=== PATIENT | female | born 1970 | race Caucasian/White ===

== ENCOUNTER → 2019-11-18 11:13 | Outpatient (BNVA) | payer MEDICARE, MEDICAID, SELFPAY | PROVIDERS: Family Provider Internal Medicine; Visit Provider Nurse Practitioner Family | DX: Z20.828 Contact with and (suspected) exposure to other viral communicable diseases (principal) | CPT/HCPCS: 87635 ==

== ENCOUNTER 2020-03-02 14:47 | Outpatient (CLI) | payer MEDICARE, MEDICAID, SELFPAY ==
--- NOTE | 2020-03-02 14:56 | USCV_ITS ---
Sharon Bello Age: 49 Gender: F : 1970 Exam Date: 03/02/2020 14:51 Ordering Phys: Shelly Fermin TRAINING ASSISTANT Technologist: Nhung Ramirez [place]am [place] [facility] [place] Indication: LLE pain and swelling HISTORY: Lower extremity swelling. Lower extremity pain. Patient has. Edema. PROCEDURES: Venous duplex imaging was performed in only the left lower extremity. The following venous structures were evaluated: common femoral vein, profunda vein, proximal portion of the greater saphenous vein, superficial femoral vein, and the popliteal vein. In addition, the posterior tibial veins were evaluated. Serial compression, augmentation maneuvers, and spectral Doppler flow evaluation were performed. FINDINGS: Examination was technically limited due to body habitus. Normal 2-D Doppler and augmentation and compressibility throughout the lower extremity venous structures. Additional imaging through the proximal calf veins also reveals no thrombus. Limited evaluation of the greater saphenous vein is patent with no thrombus.. CONCLUSIONS No DVT left lower extremity. Dr. Wendi Delacruz DO (Electronically Signed) Final Date: 02 March 2020 16:26 S
== END 2020-03-02 14:48 | disposition home or self-care (01) ==
LOC: RAD 14:53
PROVIDERS: PCP Internal Medicine; Visit Provider Nurse Practitioner Family
DX: M79.605 Pain in left leg (principal)
CPT/HCPCS: 93971

== ENCOUNTER 2020-10-17 07:35 | Outpatient (CLI) | payer MEDICARE, MEDICAID, SELFPAY ==
[2020-10-17 07:45] VITALS: BP 159/84; PULSE 77; RESP 18; TEMP 36.6; O2SAT 99
--- NOTE | 2020-10-17 07:54 | AMB.MCA ---
Patient Information COVID 19 common symptoms: positive fever(s), chills and cough [facility] COVID test results: SARS-CoV-2 RNA (RT-PCR) Not detected (NOT DETECTED) 11/18/19 11:13 11/18/19 outside results available, scanned Criteria/Plan Inclusion/Exclusion Criteria weight >/= 40kg, + direct test </= 10 days ago and symptom onset </= 10 days ago has diabetes not requiring hospitalization, not requiring oxygen (if not chronically on oxygen) and no increase oxygen requirement (if chronically on oxygen) Patient education patient/family/caregiver received/reviewed fact sheet, Emergency Use Authorization/unapproved drug status discussed with patient/family/caregiver, alternatives to this treatment discussed with patient/family/caregiver, risks and benefits of medication reviewed with patient/family/caregiver, patient/family/caregiver given opportunity for questions, which were answered and patient consents to receiving Monoclonal Antibody Treatment Plan for treatment Meets criteria for Monoclonal Antibody infusion Ordering Monoclonal Antibody infusion for today
[2020-10-17 09:37] VITALS: BP 133/83; PULSE 78; RESP 16; TEMP 36.8; O2SAT 98
[2020-10-17 10:36] VITALS: BP 125/77; PULSE 79; RESP 16; TEMP 36.7; O2SAT 98
== END 2020-10-17 07:36 | disposition home or self-care (01) ==
PROVIDERS: PCP Internal Medicine; Visit Provider Nurse Practitioner Family
DX: U07.1 COVID-19 (principal)
CPT/HCPCS: 96365

== ENCOUNTER 2020-11-05 13:00 | Outpatient (CLI) | payer MEDICARE, MEDICAID, SELFPAY ==
--- NOTE | 2020-11-05 13:09 | US_ITS ---
WS: [id number] ULTRASOUND THYROID TECHNIQUE: Ultrasound of the thyroid. CLINICAL INFORMATION: LEFT THYROID NODULE COMPARISON: None. FINDINGS: Technically difficult examination due to body habitus. Thyroid: Right and left thyroid lobes are normal in size and echotexture. Right thyroid lobe: 4.3 cm x 1.9 cm x 1.9 cm Left thyroid lobe: 4.4 cm x 1.9 cm x 1.6 cm. Hypoechoic solid appearing nodule in the upper pole left thyroid measuring 5.5 x 6.0 x 6.5 mm with ad ditional similar-appearing solid nodule in the mid thyroid measuring 3.2 x 4.6 x 3.4 mm. Isthmus: 0.4 mm. Cervical lymphadenopathy: None. US/US thyroid [id number] IMPRESSION: Technically difficult examination due to body habitus. 1. 2 small subcentimeter solid nodules in the LEFT thyroid as described above. Recommend 12 month follow-up. 2. No right-sided nodules.
== END 2020-11-05 13:01 | disposition home or self-care (01) ==
LOC: RAD 13:08
PROVIDERS: PCP Internal Medicine; Visit Provider Nurse Practitioner Family
DX: E04.2 Nontoxic multinodular goiter (principal)
CPT/HCPCS: 76536

== ENCOUNTER → 2021-12-27 14:26 | Outpatient (BNVA) | payer MEDICARE, MEDICAID, SELFPAY | PROVIDERS: PCP Internal Medicine; Visit Provider Internal Medicine | DX: R76.8 Other specified abnormal immunological findings in serum (principal); M25.50 Pain in unspecified joint; L40.9 Psoriasis, unspecified; M47.816 Spondylosis without myelopathy or radiculopathy, lumbar region; R21 Rash and other nonspecific skin eruption; R53.83 Other fatigue; M47.814 Spondylosis without myelopathy or radiculopathy, thoracic region; Z11.59 Encounter for screening for other viral diseases | CPT/HCPCS: 72072; 72100; 72202; 73120; 73620; 80053; 82550; 82607; 83516; 85025; 85651; 86140; 86160; 86162; 86200; 86235; 86255; 86376; 86704; 86803; 87340; 99204 ==

== ENCOUNTER → 2022-02-02 15:19 | Outpatient (BNVA) | payer MEDICARE, MEDICAID, SELFPAY | PROVIDERS: PCP Internal Medicine; Visit Provider Internal Medicine | DX: R76.8 Other specified abnormal immunological findings in serum (principal); M19.90 Unspecified osteoarthritis, unspecified site; M25.50 Pain in unspecified joint; R53.83 Other fatigue; R21 Rash and other nonspecific skin eruption; M70.60 Trochanteric bursitis, unspecified hip; Y93.9 Activity, unspecified | CPT/HCPCS: 99214 ==

== ENCOUNTER → 2022-04-14 08:58 | Outpatient (BNVA) | payer MEDICARE, MEDICAID, SELFPAY | PROVIDERS: PCP Internal Medicine; Referring Provider Internal Medicine; Visit Provider Anesthesiology Pain Medicine | DX: M51.16 Intervertebral disc disorders with radiculopathy, lumbar region (principal); M70.60 Trochanteric bursitis, unspecified hip; R53.83 Other fatigue; M79.7 Fibromyalgia; M79.604 Pain in right leg; M79.605 Pain in left leg; Y93.9 Activity, unspecified | CPT/HCPCS: 99204 ==

== ENCOUNTER 2022-05-25 15:24 | Outpatient (CLI) | payer MEDICARE, MEDICAID, SELFPAY ==
--- NOTE | 2022-05-25 16:00 | CT_ITS ---
WS: [email or web address] CT THORACIC SPINE HISTORY: M54.14 - Radiculopathy, thoracic region TECHNIQUE: Contiguous 2.5 mm axial images are reviewed to thoracic spine. Images are reformatted in s agittal and coronal planes. All CT scans at [facility] use at least one of these dose optimiz ation techniques: automated exposure control; mA and/or kV adjustment per patient size (includes targ eted exams where dose is matched to clinical indication); or iterative reconstruction. DLP: 1524.40 mGy.cm COMPARISON: Thoracic spine 12/27/2021 Normal thoracic alignment. Moderate size RIGHT lateral clawlike osteophytes most significantly extend ing from T6 to T10. Very mild disc space narrowing throughout the thoracic spine. No compression frac tures. Small osteophytes encroaches into the LEFT lateral thecal sac from the T2 facet. Mild facet joint art hritis encroaching upon the thecal sac at T5-6, T6-7 and T7-8. There is no significant disc protrusio ns or stenosis. There is very mild foraminal narrowing at T10-11 due to facet disease predominantly.P aravertebral soft tissues are normal. CT/CT thoracic spin wo con* [id number] IMPRESSION: 1. Mild spondylitic changes throughout the thoracic spine. No high-grade steno sis. 2. Mild facet disease is most significant at T10-11.
--- NOTE | 2022-05-25 16:30 | CT_ITS ---
WS: [email or web address] CT LUMBAR SPINE, noncontrast. HISTORY: M54.16 - Radiculopathy, lumbar region TECHNIQUE: Contiguous 2.0 mm axial imaging are performed. Sagittal and coronal reformats are submitte d and reviewed. All CT scans at [facility] use at least one of these dose optimization techni ques: automated exposure control; mA and/or kV adjustment per patient size (includes targeted exams w here dose is matched to clinical indication); or iterative reconstruction. IV contrast: None DLP: 1917.86 mGy.cm COMPARISON: None available. Quality of this examination is compromised by body habitus. Normal lumbar alignment with no loss of disc space height or vertebral body height. L1-2: Normal. L2-3: Normal. L3-4: Mild annular disc bulging. No high-grade stenosis. L4-5: Mild bilateral facet joint arthritis. Air in the facet joints. Mild ligamentum flavum hypertrop hy and facet arthritis. No high-grade stenosis. L5-S1: Air in the facet joints and hypertrophic bone changes. There is a small posterior osteophyte. No nerve root encroachment. Only very mild foraminal narrowing. Small amount of degenerative air along the SI joints with mild sclerosis. Paravertebral soft tissues are negative. CT/CT lumbar spine wo con* [id number] IMPRESSION: 1. No high-grade central or foraminal stenosis. 2. Moderate degenerative facet joint arthritis and hypertrophic bone formation at L4-5 and L5-S1. Mild foraminal stenosis at L5-S1. 3. Mild degenerative air in the SI joints.
== END 2022-05-25 15:25 | disposition home or self-care (01) ==
LOC: RAD 15:28
PROVIDERS: PCP Internal Medicine; Visit Provider Anesthesiology Pain Medicine
DX: M54.14 Radiculopathy, thoracic region (principal); M54.16 Radiculopathy, lumbar region; M48.061 Spinal stenosis, lumbar region without neurogenic claudication; M47.816 Spondylosis without myelopathy or radiculopathy, lumbar region
CPT/HCPCS: 72128; 72131

== ENCOUNTER → 2022-06-02 08:48 | Outpatient (BNVA) | payer MEDICARE, MEDICAID, SELFPAY | PROVIDERS: PCP Internal Medicine; Visit Provider Anesthesiology Pain Medicine | DX: M51.16 Intervertebral disc disorders with radiculopathy, lumbar region (principal); R53.83 Other fatigue | CPT/HCPCS: 99215 ==

== ENCOUNTER → 2022-06-14 13:20 | Outpatient (BNVA) | payer MEDICARE, MEDICAID, SELFPAY | PROVIDERS: PCP Internal Medicine; Visit Provider Internal Medicine | DX: M25.50 Pain in unspecified joint (principal); R76.8 Other specified abnormal immunological findings in serum; R53.83 Other fatigue; Z11.1 Encounter for screening for respiratory tuberculosis | CPT/HCPCS: 73030; 99213 ==

== ENCOUNTER 2022-06-21 06:00 | Outpatient (RCR) | payer MEDICARE, MEDICAID, SELFPAY ==
[2022-06-14 14:46] LABS: Basophils # 0.1 10^3/uL (0.0-0.1); Basophils % 1.2 %; Eosinophils # 0.2 10^3/uL (0.0-0.8); Eosinophils % 2.5 %; Hematocrit 40.4 % (37.0-47.0); Hemoglobin 12.9 g/dL (11.5-15.3); Lymphocytes # 1.9 10^3/uL (0.8-4.8); Lymphocytes % 31.6 %; Mean Corpuscular HGB Conc 31.9 g/dL (30.0-36.0); Mean Corpuscular Hemoglobin 28.5 pg (28.0-34.0); Mean Corpuscular Volume 89.4 fl (81-99); Mean Platelet Volume 9.9 fL (7.4-10.4); Monocytes # 0.4 10^3/uL (0.2-0.9); Monocytes % 5.8 %; Neutrophils # 3.56 10^3/uL (1.8-7.7); Neutrophils % 58.6 %; Nucleated Red Blood Cells % 0 %; Platelet Count 293 10^3/cmm (130-400); Red Blood Count 4.52 10^6/uL (4.1-5.3); Red Cell Distribution Width 12.3 % (12.1-15.1); White Blood Count 6.1 10^3/uL (4.0-10.0)
[2022-06-14 14:52] LABS: Erythrocyte Sedimentation Rate 17 mm/hr (0-15)
[2022-06-14 15:06] LABS: Alanine Aminotransferase 31 U/L (0-33); Albumin Level 3.6 g/dL (3.5-5.2); Alkaline Phosphatase 80 U/L (35-105); Blood Urea Nitrogen 17 mg/dL (6-20); C Reactive Protein 12.6 mg/L (0.0-4.9); Calcium 8.7 mg/dL (8.5-10.5); Carbon Dioxide 23 mmol/L (22-29); Chloride 105 mmol/L (98-107); Globulin 2.9 g/dL (1.3-4.6); Glomerular Filtration Rate 42.8 mL/min (90-130); Glucose 175 mg/dL (65-115); Osmolality Calculated 292 mOsm/kg (285-295); Sodium 138 mmol/L (136-145); Total Bilirubin 0.3 mg/dL (0.15-1.2); Total Protein 6.5 g/dL (6.6-8.7)
[2022-06-14 15:07] LABS: Anion Gap 14.4 (5-19); Aspartate Amino Transferase 49 U/L (0-32); Potassium 4.4 mmol/L (3.5-5.1)
[2022-06-17 11:06] LABS: Quantiferon Mitogen >10.00 IU/mL; Quantiferon Nil 0.01 IU/mL; Quantiferon Plus TB1 0.01 IU/mL; Quantiferon Plus TB2 0.01 IU/mL; Quantiferon TB Gold NEGATIVE (NEGATIVE)
== END 2022-06-24 23:59 | disposition home or self-care (01) ==
LOC: TPT 06:00
PROVIDERS: Internal Medicine; PCP Internal Medicine; Visit Provider Anesthesiology Pain Medicine
DX: M54.50 Low back pain, unspecified (principal); G89.29 Other chronic pain; M79.7 Fibromyalgia; M25.50 Pain in unspecified joint; R76.8 Other specified abnormal immunological findings in serum
CPT/HCPCS: 36415; 80053; 85025; 85651; 86140; 86480; 97110; 97163

== ENCOUNTER 2022-06-25 06:00 | Outpatient (RCR) | payer MEDICARE, MEDICAID, SELFPAY | END 2022-07-24 23:59 | disposition home or self-care (01) | LOC: TPT 06:00 | PROVIDERS: PCP Internal Medicine; Visit Provider Anesthesiology Pain Medicine | DX: M54.50 Low back pain, unspecified (principal); G89.29 Other chronic pain | CPT/HCPCS: 97110 ==

== ENCOUNTER 2022-07-25 06:00 | Outpatient (RCR) | payer MEDICARE, MEDICAID, SELFPAY | END 2022-08-10 23:59 | disposition home or self-care (01) | LOC: TPT 06:00 | PROVIDERS: PCP Internal Medicine; Visit Provider Anesthesiology Pain Medicine | DX: M54.50 Low back pain, unspecified (principal); G89.29 Other chronic pain | CPT/HCPCS: 97110 ==

== ENCOUNTER → 2022-08-02 09:53 | Outpatient (BNVA) | payer MEDICARE, MEDICAID, SELFPAY | PROVIDERS: PCP Internal Medicine; Visit Provider Anesthesiology Pain Medicine | DX: M51.16 Intervertebral disc disorders with radiculopathy, lumbar region (principal); R53.83 Other fatigue; M79.7 Fibromyalgia | CPT/HCPCS: 99214 ==

== ENCOUNTER → 2022-08-04 13:50 | Outpatient (BNVA) | payer MEDICARE, MEDICAID, SELFPAY | PROVIDERS: PCP Internal Medicine; Visit Provider Internal Medicine | DX: R76.8 Other specified abnormal immunological findings in serum (principal); M79.7 Fibromyalgia; M35.9 Systemic involvement of connective tissue, unspecified; R53.83 Other fatigue; R74.01 Elevation of levels of liver transaminase levels | CPT/HCPCS: 73560; 80053; 82550; 85025; 99214 ==

== ENCOUNTER → 2022-08-04 13:50 | Outpatient (BNVA) | payer MEDICARE, MEDICAID, SELFPAY | PROVIDERS: PCP Internal Medicine; Visit Provider Radiology Diagnostic Radiology | DX: R76.8 Other specified abnormal immunological findings in serum (principal); M17.12 Unilateral primary osteoarthritis, left knee; M76.9 Unspecified enthesopathy, lower limb, excluding foot | CPT/HCPCS: 73560; 80053; 82550; 85025 ==

== ENCOUNTER 2022-09-02 09:09 | Outpatient (CLI) | payer MEDICARE, MEDICAID, SELFPAY ==
--- NOTE | 2022-09-02 09:00 | US_ITS ---
WS: [email or web address] RIGHT UPPER QUADRANT ULTRASOUND HISTORY: R76.8 - Other specified abnormal immunological findings, abdominal pain. COMPARISON: [facility] ultrasound 01/13/2016 Liver: 17.2 cm in length. Liver appears enlarged. Larger within the diameter submitted. Coarse echote xture. Poor visualization of the portal triads. No mass identified but the entire liver is not well v isualized. Portal Vein: Normal hepatopetal flow with monophasic waveform. Gallbladder: Status post cholecystectomy. CBD: 0.4 cm Pancreas: Limited visualization. No abnormality identified. Right kidney: 9.6 cm in length. Normal size and echogenicity. No hydronephrosis or mass. Aorta and IVC: Unremarkable abdominal aorta and IVC. No ascites. US/US abdomen limited [id number] IMPRESSION: 1. Prior cholecystectomy. 2. No bile duct dilatation. 3. Marked hepatic steatosis with hepatomegaly.
== END 2022-09-02 09:10 | disposition home or self-care (01) ==
PROVIDERS: PCP Internal Medicine; Visit Provider Internal Medicine
DX: M79.7 Fibromyalgia (principal); R76.8 Other specified abnormal immunological findings in serum; K76.0 Fatty (change of) liver, not elsewhere classified; R16.0 Hepatomegaly, not elsewhere classified
CPT/HCPCS: 73560; 76705; 80053; 82550; 85025

== ENCOUNTER 2022-10-20 14:43 | Outpatient (CLI) | payer MEDICARE, MEDICAID, SELFPAY ==
--- NOTE | 2022-10-20 14:57 | XR_ITS ---
WS: [email or web address] EXAMINATION: XR knee LT 3V* [id number] REASON FOR EXAM: L KNEE PAIN COMPARISON: 08/04/2022 ORDER DATE: 10/20/2022 3:09 PM FINDINGS/IMPRESSION: There is no sign of any acute osseous or articular abnormality. There are no specific soft tissue abn ormalities. Seems to be some soft tissue calcifications throughout the visualized proximal left leg
== END 2022-10-20 14:44 | disposition home or self-care (01) ==
LOC: RAD 14:46
PROVIDERS: PCP Internal Medicine; Visit Provider Nurse Practitioner Family
DX: M25.562 Pain in left knee (principal)
CPT/HCPCS: 73562

== ENCOUNTER 2022-11-25 13:35 | Outpatient (CLI) | payer MEDICARE, MEDICAID, SELFPAY ==
--- NOTE | 2022-11-25 13:51 | US_ITS ---
WS: [email or web address] RENAL ULTRASOUND HISTORY: STAGE 3A CHRONIC KIDNEY DZ COMPARISON: None available. Technically difficult renal ultrasound due to body habitus. TECHNIQUE: 2-D and color Doppler imaging of the kidney submitted. Right kidney: 10.3 cm x 5.6 cm x 5.1 cm. Cortex: 2.1 cm Normal echogenicity with no hydronephrosis or mass. Left kidney: 10.3 cm x 4.5 cm x 4.7 cm. Cortex: 1.9 cm Normal echogenicity with no hydronephrosis or mass. Aorta: Normal. Urinary Bladder: Normal distention. IMPRESSION: Extremely limited evaluation of the kidneys due to body habitus but no abnormality is identified.
== END 2022-11-25 13:36 | disposition home or self-care (01) ==
PROVIDERS: PCP Internal Medicine; Visit Provider Internal Medicine Nephrology
DX: N18.31 Chronic kidney disease, stage 3a (principal)
CPT/HCPCS: 76770

== ENCOUNTER → 2022-11-30 09:06 | Outpatient (BNVA) | payer MEDICARE, MEDICAID, SELFPAY | PROVIDERS: PCP Internal Medicine; Visit Provider Anesthesiology Pain Medicine | DX: M70.60 Trochanteric bursitis, unspecified hip; R53.83 Other fatigue; M79.7 Fibromyalgia; M51.16 Intervertebral disc disorders with radiculopathy, lumbar region; M54.2 Cervicalgia; M47.814 Spondylosis without myelopathy or radiculopathy, thoracic region; M48.061 Spinal stenosis, lumbar region without neurogenic claudication; M47.816 Spondylosis without myelopathy or radiculopathy, lumbar region; Y93.9 Activity, unspecified | CPT/HCPCS: 99213 ==

== ENCOUNTER → 2022-12-01 14:50 | Outpatient (BNVA) | payer MEDICARE, MEDICAID, SELFPAY | PROVIDERS: PCP Internal Medicine; Visit Provider Internal Medicine | DX: M79.7 Fibromyalgia (principal); M35.9 Systemic involvement of connective tissue, unspecified; R53.83 Other fatigue; R74.01 Elevation of levels of liver transaminase levels | CPT/HCPCS: 36415; 80053; 85025; 85651; 86140; 99214 ==

== ENCOUNTER → 2022-12-29 09:14 | Outpatient (BNVA) | payer MEDICARE, MEDICAID, SELFPAY | PROVIDERS: PCP Internal Medicine; Visit Provider Anesthesiology Pain Medicine | DX: M70.60 Trochanteric bursitis, unspecified hip; R53.83 Other fatigue; M79.7 Fibromyalgia; M51.16 Intervertebral disc disorders with radiculopathy, lumbar region | CPT/HCPCS: 99214 ==

== ENCOUNTER → 2023-02-10 08:59 | Outpatient (BNVA) | payer MEDICARE, MEDICAID, SELFPAY | PROVIDERS: PCP Internal Medicine; Visit Provider Thoracic Surgery (Cardiothoracic Vascular Surgery) | DX: E11.52 Type 2 diabetes mellitus with diabetic peripheral angiopathy with gangrene (principal); E11.621 Type 2 diabetes mellitus with foot ulcer; L97.521 Non-pressure chronic ulcer of other part of left foot limited to breakdown of skin; L97.511 Non-pressure chronic ulcer of other part of right foot limited to breakdown of skin | CPT/HCPCS: 97597; 97598; 99213; A6212 ==

== ENCOUNTER → 2023-02-23 15:49 | Outpatient (BNVA) | payer MEDICARE, MEDICAID, SELFPAY | PROVIDERS: PCP Internal Medicine; Visit Provider Nurse Practitioner Family | DX: E11.621 Type 2 diabetes mellitus with foot ulcer (principal); E11.52 Type 2 diabetes mellitus with diabetic peripheral angiopathy with gangrene; L97.521 Non-pressure chronic ulcer of other part of left foot limited to breakdown of skin; Z09 Encounter for follow-up examination after completed treatment for conditions other than malignant neoplasm | CPT/HCPCS: 97597 ==

== ENCOUNTER → 2023-03-03 08:00 | Outpatient (BNVA) | payer MEDICARE, MEDICAID, SELFPAY | PROVIDERS: PCP Internal Medicine; Visit Provider Thoracic Surgery (Cardiothoracic Vascular Surgery) | DX: E11.52 Type 2 diabetes mellitus with diabetic peripheral angiopathy with gangrene (principal); E11.621 Type 2 diabetes mellitus with foot ulcer; L97.521 Non-pressure chronic ulcer of other part of left foot limited to breakdown of skin | CPT/HCPCS: 97597; A6212 ==

== ENCOUNTER → 2023-03-09 09:15 | Outpatient (BNVA) | payer MEDICARE, MEDICAID, SELFPAY | PROVIDERS: PCP Internal Medicine; Visit Provider Anesthesiology Pain Medicine | DX: M79.672 Pain in left foot (principal); R53.83 Other fatigue; M79.7 Fibromyalgia; M51.16 Intervertebral disc disorders with radiculopathy, lumbar region; M54.2 Cervicalgia; M47.816 Spondylosis without myelopathy or radiculopathy, lumbar region | CPT/HCPCS: 99214 ==

== ENCOUNTER 2023-03-10 10:18 | Outpatient (CLI) | payer MEDICARE, MEDICAID, SELFPAY ==
--- NOTE | 2023-03-10 10:21 | XR_ITS ---
WS: [email or web address] Left foot, 3 views, 03/10/2023 Clinical Data: M79.672 - Pain in left foot Comparison: Left foot, 12/27/2021 Findings: No fractures or dislocations are seen. No bone destruction or erosion is noted. There is minimal oste oarthritic change of the IP joints of the left foot. There is osteoarthritis at the bases of the left first through fifth metatarsals. There is a large Achilles spur and a small plantar spur. There is a n additional spur of the inferior aspect of the calcaneus. There are vascular calcifications in the s ubcutaneous tissue of the lower left leg. Impression: Osteoarthritis of multiple joints of the left foot unchanged.
== END 2023-03-10 10:19 | disposition home or self-care (01) ==
LOC: RAD 10:19
PROVIDERS: PCP Internal Medicine; Visit Provider Anesthesiology Pain Medicine
DX: M79.672 Pain in left foot (principal); Z09 Encounter for follow-up examination after completed treatment for conditions other than malignant neoplasm; Z87.2 Personal history of diseases of the skin and subcutaneous tissue
CPT/HCPCS: 73630; 99212

== ENCOUNTER → 2023-03-14 11:23 | Outpatient (BNVA) | payer MEDICARE, MEDICAID, SELFPAY | PROVIDERS: PCP Internal Medicine; Visit Provider Podiatrist Foot & Ankle Surgery | DX: E11.42 Type 2 diabetes mellitus with diabetic polyneuropathy; L84 Corns and callosities; L60.3 Nail dystrophy; G62.9 Polyneuropathy, unspecified; S93.622A Sprain of tarsometatarsal ligament of left foot, initial encounter; X58.XXXA Exposure to other specified factors, initial encounter; Z79.4 Long term (current) use of insulin; Z46.89 Encounter for fitting and adjustment of other specified devices; M54.50 Low back pain, unspecified; G89.29 Other chronic pain | CPT/HCPCS: 11055; 73610; 97760; 99203; L4361 ==

== ENCOUNTER 2023-03-14 11:53 | Outpatient (CLI) | payer MEDICARE, MEDICAID, SELFPAY | END 2023-03-14 11:54 | disposition home or self-care (01) | LOC: SPT 11:54 | PROVIDERS: PCP Internal Medicine; Visit Provider Podiatrist Foot & Ankle Surgery | DX: Z46.89 Encounter for fitting and adjustment of other specified devices (principal); M54.50 Low back pain, unspecified; G89.29 Other chronic pain | CPT/HCPCS: 11055; 97760; 99203; L4361 ==

== ENCOUNTER → 2023-03-28 10:12 | Outpatient (BNVA) | payer MEDICARE, MEDICAID, SELFPAY | PROVIDERS: PCP Internal Medicine; Visit Provider Podiatrist Foot & Ankle Surgery | DX: L84 Corns and callosities; L60.3 Nail dystrophy; E11.42 Type 2 diabetes mellitus with diabetic polyneuropathy; G62.9 Polyneuropathy, unspecified; Z79.4 Long term (current) use of insulin; S93.622A Sprain of tarsometatarsal ligament of left foot, initial encounter; X58.XXXA Exposure to other specified factors, initial encounter | CPT/HCPCS: 73630; 99213 ==

== ENCOUNTER 2023-04-05 15:03 | Outpatient (CLI) | payer MEDICARE, MEDICAID, SELFPAY ==
--- NOTE | 2023-04-05 15:30 | CT_ITS ---
WS: [email or web address] CT LEFT FOOT, NONCONTRAST. HISTORY: Lisfranc sprain Technique: All CT scans at [facility] use at least one of these dose optimization techniques: automated exposure control; mA and/or kV adjustment per patient size (includes targeted exams where dose is matched to clinical indication); or iterative reconstruction. DLP: 138.26 mGy.cm COMPARISON: Radiographs 03/28/2023 and 03/10/2023 No acute fractures or dislocations are identified. There is narrowing of the intertarsal spaces and s mall osteophytes from arthritis. No widening of the Lisfranc joint. The ligament cannot be adequately evaluated by CT. There is no soft tissue edema. Hammertoe deformities. There is a large calcaneal spur measuring 1.2 cm. Large posterior calcaneal enthesopathy measuring 1. 7 cm. No osseous destruction. There are scattered calcifications in several of the arteries. IMPRESSION: 1. No acute fracture. 2. No widening of the Lisfranc joint space. The ligament cannot be evaluated by CT. 3. Osteoarthritic changes involving the intertarsal articulations. 4. Hammertoe deformities. 5. Achilles enthesopathy and large calcaneal spur.
== END 2023-04-05 15:04 | disposition home or self-care (01) ==
LOC: RAD 15:03
PROVIDERS: PCP Internal Medicine; Visit Provider Podiatrist Foot & Ankle Surgery
DX: S93.629A Sprain of tarsometatarsal ligament of unspecified foot, initial encounter (principal); Y99.9 Unspecified external cause status; M20.42 Other hammer toe(s) (acquired), left foot; M77.32 Calcaneal spur, left foot
CPT/HCPCS: 36415; 71046; 71111; 73700; 80053; 84443; 85025; 85651; 99214

== ENCOUNTER → 2023-05-22 10:57 | Outpatient (BNVA) | payer MEDICARE, MEDICAID, SELFPAY | PROVIDERS: PCP Family Medicine; Visit Provider Podiatrist Foot & Ankle Surgery | DX: L84 Corns and callosities (principal); L60.3 Nail dystrophy; G62.9 Polyneuropathy, unspecified; E11.42 Type 2 diabetes mellitus with diabetic polyneuropathy; S93.622A Sprain of tarsometatarsal ligament of left foot, initial encounter; Z79.4 Long term (current) use of insulin; X58.XXXA Exposure to other specified factors, initial encounter | CPT/HCPCS: 99213 ==

== ENCOUNTER → 2023-06-06 10:06 | Outpatient (BNVA) | payer MEDICARE, MEDICAID, SELFPAY | PROVIDERS: PCP Family Medicine; Referring Provider Internal Medicine; Visit Provider Internal Medicine | DX: E11.9 Type 2 diabetes mellitus without complications (principal); E04.2 Nontoxic multinodular goiter; Z79.4 Long term (current) use of insulin; Z79.85 Long-term (current) use of injectable non-insulin antidiabetic drugs | CPT/HCPCS: 99204 ==

== ENCOUNTER → 2023-07-27 11:02 | Outpatient (BNVA) | payer MEDICARE, MEDICAID, SELFPAY | PROVIDERS: PCP Family Medicine; Visit Provider Podiatrist Foot & Ankle Surgery | DX: L60.3 Nail dystrophy (principal); L84 Corns and callosities; G62.9 Polyneuropathy, unspecified; E11.42 Type 2 diabetes mellitus with diabetic polyneuropathy; Z79.4 Long term (current) use of insulin | CPT/HCPCS: 11721 ==

== ENCOUNTER 2023-08-07 11:01 | Outpatient (CLI) | payer MEDICARE, MEDICAID, SELFPAY ==
--- NOTE | 2023-08-07 11:15 | US_ITS ---
WS: [email or web address] THYROID ULTRASOUND HISTORY: multiple thyroid nodules COMPARISON: 11/05/2020 Right lobe: 1.9 cm x 2.0 cm x 4.6 cm (w x ap x l). Volume: 8.7 cm3. Normal size and echotexture. No significant are dominant nodules are present. Left lobe: 1.9 cm x 2.3 cm x 4.0 cm (w x ap x l). Volume: 8.5 cm3. Hypoechoic nodule in the LEFT thyroid lobe. The location is not documented. Isthmus: 0.3 cm. US/US thyroid [id number] IMPRESSION: 1. Thyroid ultrasound evaluation is suboptimal. Recommend repeat imaging at no additional charge to the patient. 2. Additional imaging to include color Doppler of the thyroid gland and better imaging and documentation of the LEFT thyroid nodule.
== END 2023-08-07 11:02 | disposition home or self-care (01) ==
LOC: RAD 11:01
PROVIDERS: PCP Family Medicine; Visit Provider Internal Medicine
DX: E04.2 Nontoxic multinodular goiter (principal)
CPT/HCPCS: 76536

== ENCOUNTER 2023-08-10 15:16 | Outpatient (CLI) | payer MEDICARE, MEDICAID, SELFPAY ==
[2023-08-10 15:59] LABS: Basophils # 0.1 10^3/uL (0.0-0.1); Basophils % 1.1 %; Eosinophils # 0.1 10^3/uL (0.0-0.8); Eosinophils % 2.1 %; Hematocrit 42.4 % (36-47); Lymphocytes # 1.8 10^3/uL (0.8-4.8); Lymphocytes % 34.7 %; Mean Corpuscular HGB Conc 32.3 g/dL (30-55); Mean Corpuscular Hemoglobin 28.4 pg (27-33); Mean Platelet Volume 9.5 fL (7.4-10.4); Monocytes # 0.3 10^3/uL (0.2-0.9); Monocytes % 4.9 %; Neutrophils # 3.01 10^3/uL (1.8-7.7); Neutrophils % 57.2 %; Nucleated Red Blood Cells % 0 %; Platelet Count 277 10^3/cmm (157-399); Red Blood Count 4.82 10^6/uL (3.85-5.65); Red Cell Distribution Width 13.6 % (12.1-15.1); White Blood Count 5.27 10^3/uL (3.29-11.43)
[2023-08-10 16:49] LABS: Alanine Aminotransferase 16 U/L (0-33); Albumin Level 3.9 g/dL (3.5-5.2); Alkaline Phosphatase 107 U/L (35-105); Aspartate Amino Transferase 18 U/L (0-32); C Reactive Protein 8.9 mg/L (0.0-4.9); Globulin 3.2 g/dL (1.3-4.6); Glomerular Filtration Rate 39.2 mL/min (90-130); Total Bilirubin 0.4 mg/dL (0.15-1.2); Total Protein 7.1 g/dL (6.6-8.7)
== END 2023-08-10 15:17 | disposition home or self-care (01) ==
LOC: LAB 15:21
PROVIDERS: PCP Family Medicine; Visit Provider Internal Medicine Rheumatology
DX: Z79.899 Other long term (current) drug therapy (principal); R76.8 Other specified abnormal immunological findings in serum
CPT/HCPCS: 80076; 82565; 85025; 86140

== ENCOUNTER → 2023-08-16 12:51 | Outpatient (BNVA) | payer MEDICARE, MEDICAID, SELFPAY | PROVIDERS: PCP Family Medicine; Visit Provider Internal Medicine Rheumatology | DX: R76.8 Other specified abnormal immunological findings in serum (principal); M19.90 Unspecified osteoarthritis, unspecified site; Z79.899 Other long term (current) drug therapy; Z71.85 Encounter for immunization safety counseling; M79.7 Fibromyalgia | CPT/HCPCS: 99214; J1010 ==

== ENCOUNTER 2023-08-18 12:04 | Outpatient (CLI) | payer MEDICARE, MEDICAID, SELFPAY ==
--- NOTE | 2023-08-18 12:45 | US_ITS ---
WS: [email or web address] THYROID ULTRASOUND HISTORY: E04.2 - Nontoxic multinodular goiter COMPARISON: 08/07/2023 Right lobe: 1.5 cm x 1.6 cm x 3.9 cm (w x ap x l). Volume: 4.4 cm3. Normal size and echotexture. No significant are dominant nodules are present. Left lobe: 1.6 cm x 1.5 cm x 3.8 cm (w x ap x l). Volume: 4.4 cm3. Normal sized gland. Hypoechoic nodule in the superior pole measures 0.8 x 0.5 x 0.8 cm. No additional nodules. Isthmus: 0.4 cm. US/US thyroid [id number] IMPRESSION: 1. Better evaluation of the thyroid as compared to 08/07/2023. Only a single no dule is identified. These nodules are subcentimeter. No suspicious features. 2. No additional imaging follow-up necessary as indicated by TI-RADS.
== END 2023-08-18 12:05 | disposition home or self-care (01) ==
LOC: RAD 12:04
PROVIDERS: PCP Family Medicine; Visit Provider Internal Medicine
DX: E04.1 Nontoxic single thyroid nodule (principal)
CPT/HCPCS: 76536; 99214; J1010

== ENCOUNTER → 2023-09-07 09:43 | Outpatient (BNVA) | payer MEDICARE, MEDICAID, SELFPAY | PROVIDERS: PCP Family Medicine; Visit Provider Anesthesiology Pain Medicine | DX: R53.83 Other fatigue; M79.7 Fibromyalgia; M51.16 Intervertebral disc disorders with radiculopathy, lumbar region | CPT/HCPCS: 99214 ==

== ENCOUNTER 2023-09-11 15:29 | Outpatient (CLI) | payer MEDICARE, MEDICAID, SELFPAY ==
[2023-09-11 16:25] LABS: Estmated Average Glucose 131; Hemoglobin A1C 6.2 % (4.0-6.0)
[2023-09-11 16:41] LABS: Creatinine Urine, Random 68 mg/dL (28-217); Microalbum Creatinine Ratio Ur 15 mg/dL (0-20); Microalbumin Random Urine 1 ug/dL (0-20)
[2023-09-11 16:58] LABS: Alanine Aminotransferase 12 U/L (0-33); Albumin Level 4.1 g/dL (3.5-5.2); Alkaline Phosphatase 94 U/L (35-105); Anion Gap 15.8 (5-19); Aspartate Amino Transferase 16 U/L (0-32); Blood Urea Nitrogen 26 mg/dL (6-20); Calcium 8.9 mg/dL (8.5-10.5); Carbon Dioxide 21 mmol/L (22-29); Chloride 111 mmol/L (98-107); Chol HDL Ratio 4.09 mg/dL (0.0-4.40); Cholesterol 143 mg/dL (0-200); Globulin 3.2 g/dL (1.3-4.6); Glomerular Filtration Rate 42.7 mL/min (90-130); Glucose 194 mg/dL (65-115); HDL Cholesterol 35 mg/dL (60-100); LDL Cholesterol Calculated 77 mg/dL (50-129); Osmolality Calculated 306 mOsm/kg (285-295); Potassium 4.8 mmol/L (3.5-5.1); Sodium 143 mmol/L (136-145); Total Bilirubin 0.3 mg/dL (0.15-1.2); Total Protein 7.3 g/dL (6.6-8.7); Triglycerides 156 mg/dL (0-150)
== END 2023-09-11 15:30 | disposition home or self-care (01) ==
LOC: LAB 15:31
PROVIDERS: Absent Provider Internal Medicine Rheumatology; PCP Family Medicine; Visit Provider Internal Medicine
DX: E11.9 Type 2 diabetes mellitus without complications (principal); E04.2 Nontoxic multinodular goiter
CPT/HCPCS: 80053; 80061; 82044; 83036

== ENCOUNTER → 2023-10-06 11:00 | Outpatient (BNVA) | payer MEDICARE, MEDICAID, SELFPAY | PROVIDERS: PCP Family Medicine; Visit Provider Podiatrist Foot & Ankle Surgery | DX: R09.89 Other specified symptoms and signs involving the circulatory and respiratory systems (principal); L60.3 Nail dystrophy; L84 Corns and callosities; E11.42 Type 2 diabetes mellitus with diabetic polyneuropathy; G62.9 Polyneuropathy, unspecified; Z79.4 Long term (current) use of insulin | CPT/HCPCS: 11056; 11721; 99213 ==

== ENCOUNTER 2023-10-06 11:40 | Emergency (ER) | payer MEDICARE, MEDICAID, SELFPAY ==
[2023-10-06 11:43] VITALS: BP 143/70; PULSE 80; RESP 16; TEMP 36.3; O2SAT 96; BMI 58.3
--- NOTE | 2023-10-06 11:45 | USCV_ITS ---
Sharon Bello Age: 53 Gender: F : 1970 Exam Date: 10/06/2023 12:18 Ordering Phys: Anila Weinberg Technologist: [place] [facility] [place]: PROCEDURES: Venous duplex imaging was performed in only the right lower extremity. On the right side, the common femoral, superficial femoral, profunda femoral, popliteal, posterior tibial, greater saphenous veins and the peroneal trunk were identified and interrogated in the standard fashion. These veins were found to be easily compressible with spontaneous blood flow. No evidence of insufficiency or thrombus noted. FINDINGS: no dvt CONCLUSIONS No evidence of right lower extremity DVT. Kye Tubbs MD (Electronically Signed) Final Date: 06 October 2023 16:15 S
--- NOTE | 2023-10-06 12:53 | W.ED.EXTPRO ---
HPI - Extremity Problem General: Chief complaint: Extremity Problem,Nontraumatic Stated complaint: Possible blood clot right leg Dr Rea sent Time Seen by Provider: 10/06/23 11:53 Source: patient Mode of arrival: ambulatory Limitations: no limitations History of Present Illness: Patient is a 53-year-old female presents to ED today with a complaint of right calf pain. She was seen by her cigarette paper tester earlier today for routine appointment who had concerns for a possible DVT as she also had a history of a long car ride to [place]. Patient has not noticed any redness to the leg. She does have chronic edema bilaterally with chronic stasis dermatitis. MD Complaint: extremity pain Onset (ago): day(s) Pain Consistency: constant Location: right and lower extremity Radiation: none Relieving factors: nothing Exacerbating factors: walking Associated symptoms: Reports no associated symptoms; Deny chest pain or fever(s) Context: recent travel Review of Systems Const: Denies: fever(s) Card: Denies: chest pain Resp: Denies: dyspnea Musc: Reports: extremity pain (R calf) and extremity swelling (chronic bilateral LE swelling); Denies: neck pain, back pain, joint pain, joint swelling, joint redness or joint warmth PFSH ED PFSH: Medical History Immunization counseling High risk medication use Inflammatory arthritis Acid reflux Anxiety Depression Diabetes Headache High blood pressure High cholesterol Kidney disease Pneumonia Bursitis Undifferentiated connective tissue disease Sleep apnea Rib pain Fibromyalgia Osteoarthritis Surgical History History of laparoscopic cholecystectomy History of temporal artery biopsy Social History Smoking and tobacco/nicotine status: unknown if used tobacco/nicotine Second hand smoke exposure: No Alcohol intake: never Substance/Drug Use: never Physical Exam Const: COMMON NORMALS: no acute distress, patient oriented x3, no limitations and alert GENERAL APPEARANCE: cooperative NUTRITIONAL APPEARANCE: obese morbidly obese (BMI 58.4) ORIENTATION/CONSCIOUSNESS: Yes awake, Yes oriented to person, Yes oriented to place and Yes oriented to time Resp: COMMON NORMALS: normal respiratory effort Cardio: COMMON NORMALS: regular rate and regular rhythm RATE: regular rate RHYTHM: regular rhythm Extremity: COMMON NORMALS: full ROM and capillary refill normal GENERAL: Yes normal exam except as noted RIGHT LOWER EXTREMITY: Yes lower leg (TTP R calf; no obvious erythema/warmth) Right lower leg: Yes neurovascular exam (normal) OTHER: chronic statis dermatitis changes bilateral LEs Neuro: COMMON NORMALS: patient oriented x3, moves all extremities, no focal motor deficits and no sensory deficits noted SENSORIUM/ORIENTATION: Yes alert, Yes oriented to person, Yes oriented to place and Yes oriented to time Course Vital Signs: Vital signs: Vital Signs Temperature 97.4 F L 10/06/23 11:43 Pulse Rate 78 10/06/23 13:01 Respiratory Rate 18 10/06/23 13:01 Blood Pressure 160/85 10/06/23 13:01 Pulse Oximetry 93 10/06/23 13:01 Oxygen Delivery Me thod Room Air 10/06/23 13:01 MDM - Extremity (Nontraumatic) Medical Decision Making US negative for DVT. Will be allowed discharge from the emergency department. Return precautions given. XR interpretation done by ED provider, pending radiology final review (per Wesly/ tech-negative for DVT) Discharge Plan Discharge Patient Disposition: Home Clinical Impression: Right calf pain Condition: Stable Prescriptions: No Action prednisone 5 mg tablet See Rx Instructions PO DAILY Qty: 60 0RF Rx Instructions: 15mg po qday x 5 days, then 10mg po qday orally daily; ezetimibe 10 mg tablet 10 mg PO Toujeo Max U-300 SoloStar 300 unit/mL (3 mL) insulin pen 100 unit SUBCUT DAILY escitalopram oxalate 20 mg tablet 20 mg PO Ozempic 2 mg/dose (8 mg/3 mL) pen injector 2 mg SUBCUT Q7D Invokana 100 mg tablet 100 mg PO fenofibrate 54 mg tablet 54 mg PO insulin aspart U-100 [Novolog FlexPen U-100 Insulin] 100 unit/mL (3 mL) insulin pen 60 unit SUBCUT DAILY losartan 25 mg PO DAILY topiramate 50 mg tablet 50 mg PO BID 30 Days Qty: 60 3RF acetaminophen [Tylenol Arthritis Pain] 650 mg tablet extended release 650 mg PO Q12H baclofen 10 mg tablet 5 mg PO BID PRN (Reason: spasm) Qty: 30 0RF (DME) CAM Boot See Rx Instructions .Route .MEDSUPPLY Qty: 1 0RF Rx Instructions: As directed (DME) diabetic shoes See Rx Instructions .Route .MEDSUPPLY Qty: 1 0RF Rx Instructions: As directed to the Jun keene leflunomide 20 mg tablet 20 mg PO DAILY Qty: 30 5RF Discharge Orders: Discharge ED (Routine); Ordered 10/06/23 Ordered By: Anila Weinberg Referrals: Abigail Gomez DO [Primary Care Provider] - Activity Restrictions/Additional Instructions: As we discussed your ultrasound is negative for DVT. You may elevate the extremity, alternate ice/heat, massage and follow-up with primary care in 1 to 2 weeks if symptoms persist. Coding Level of Care Code ED Electromechanical Technologist for Katelyn Peng
[2023-10-06 13:01] VITALS: BP 160/85; PULSE 78; RESP 18; O2SAT 93
[2023-10-06 13:21] VITALS: BP 118/72; PULSE 76; RESP 18; O2SAT 94
== END 2023-10-06 13:23 | disposition home or self-care (01) ==
PROVIDERS: Emergency Provider Physician Assistant; PCP Family Medicine
DX: M79.661 Pain in right lower leg (principal); Z79.4 Long term (current) use of insulin; I87.2 Venous insufficiency (chronic) (peripheral); E11.9 Type 2 diabetes mellitus without complications
CPT/HCPCS: 93971; 99284

== ENCOUNTER → 2023-11-10 09:51 | Outpatient (BNVA) | payer MEDICARE, MEDICAID, SELFPAY | PROVIDERS: PCP Family Medicine; Visit Provider Internal Medicine | DX: E11.9 Type 2 diabetes mellitus without complications (principal); E04.2 Nontoxic multinodular goiter; Z79.4 Long term (current) use of insulin; Z79.85 Long-term (current) use of injectable non-insulin antidiabetic drugs | CPT/HCPCS: 99214 ==

== ENCOUNTER 2023-11-13 12:02 | Outpatient (CLI) | payer MEDICARE, MEDICAID, SELFPAY ==
[2023-11-13 12:58] LABS: Basophils # 0.1 10^3/uL (0.0-0.1); Basophils % 1.1 %; Eosinophils # 0.1 10^3/uL (0.0-0.8); Eosinophils % 2.4 %; Hematocrit 44.3 % (36-47); Lymphocytes # 1.5 10^3/uL (0.8-4.8); Lymphocytes % 31.7 %; Mean Corpuscular HGB Conc 32.5 g/dL (30-55); Mean Corpuscular Hemoglobin 28.6 pg (27-33); Mean Corpuscular Volume 88.1 fl (85-98); Mean Platelet Volume 10.2 fL (7.4-10.4); Monocytes # 0.3 10^3/uL (0.2-0.9); Monocytes % 5.7 %; Neutrophils # 2.71 10^3/uL (1.8-7.7); Neutrophils % 58.9 %; Nucleated Red Blood Cells % 0 %; Platelet Count 216 10^3/cmm (157-399); Red Blood Count 5.03 10^6/uL (3.85-5.65); Red Cell Distribution Width 13.4 % (12.1-15.1)
[2023-11-13 13:21] LABS: Creatinine Urine, Random 98 mg/dL (28-217); Microalbum Creatinine Ratio Ur 10 mg/dL (0-20); Microalbumin Random Urine 1 ug/dL (0-20)
[2023-11-13 13:21] LABS: Anion Gap 15.3 (5-19); Blood Urea Nitrogen 18 mg/dL (6-20); Calcium 8.9 mg/dL (8.5-10.5); Carbon Dioxide 23 mmol/L (22-29); Chloride 105 mmol/L (98-107); Glomerular Filtration Rate 42.7 mL/min (90-130); Glucose 170 mg/dL (65-115); Phosphorus 2.6 mg/dL (2.5-4.5); Potassium 4.3 mmol/L (3.5-5.1); Sodium 139 mmol/L (136-145)
[2023-11-13 13:28] LABS: Parathyroid Hormone 34.4 pg/mL (15-65)
== END 2023-11-13 12:03 | disposition home or self-care (01) ==
LOC: LAB 12:16
PROVIDERS: PCP Family Medicine; Visit Provider Registered Nurse
DX: N18.31 Chronic kidney disease, stage 3a (principal)
CPT/HCPCS: 36415; 80069; 82044; 82310; 83970; 85025

== ENCOUNTER → 2023-12-27 13:56 | Outpatient (BNVA) | payer MEDICARE, MEDICAID, SELFPAY | PROVIDERS: PCP Family Medicine; Visit Provider Internal Medicine Rheumatology | DX: R76.8 Other specified abnormal immunological findings in serum (principal); M19.90 Unspecified osteoarthritis, unspecified site; M79.7 Fibromyalgia; R51.9 Headache, unspecified; E11.22 Type 2 diabetes mellitus with diabetic chronic kidney disease; N18.9 Chronic kidney disease, unspecified; Z71.85 Encounter for immunization safety counseling; Z79.899 Other long term (current) drug therapy; Z11.1 Encounter for screening for respiratory tuberculosis; Z11.59 Encounter for screening for other viral diseases | CPT/HCPCS: 36415; 72040; 72072; 72100; 80076; 82565; 85025; 86140; 99215 ==

== ENCOUNTER → 2024-01-04 14:33 | Outpatient (BNVA) | payer MEDICARE, MEDICAID, SELFPAY | PROVIDERS: PCP Family Medicine; Visit Provider Internal Medicine Rheumatology | DX: M31.6 Other giant cell arteritis (principal); Z71.89 Other specified counseling | CPT/HCPCS: 20600; J1010 ==

== ENCOUNTER 2024-01-30 13:33 | Outpatient (CLI) | payer MEDICARE, MEDICAID, SELFPAY ==
[2024-01-30 14:17] LABS: Basophils # 0.1 10^3/uL (0.0-0.1); Basophils % 1.7 %; Eosinophils # 0.1 10^3/uL (0.0-0.8); Eosinophils % 3.8 %; Hematocrit 42.4 % (36-47); Lymphocytes # 1.2 10^3/uL (0.8-4.8); Mean Corpuscular Hemoglobin 29.7 pg (27-33); Mean Corpuscular Volume 89.8 fl (85-98); Mean Platelet Volume 10.1 fL (7.4-10.4); Monocytes # 0.2 10^3/uL (0.2-0.9); Monocytes % 7.9 %; Neutrophils # 1.32 10^3/uL (1.8-7.7); Neutrophils % 45.6 %; Nucleated Red Blood Cells % 0 %; Platelet Count 148 10^3/cmm (157-399); Red Blood Count 4.72 10^6/uL (3.85-5.65); Red Cell Distribution Width 13.7 % (12.1-15.1)
[2024-01-30 14:25] LABS: Erythrocyte Sedimentation Rate 6 mm/hr (0-15)
[2024-01-30 14:35] LABS: Estmated Average Glucose 163; Hemoglobin A1C 7.3 % (4.0-6.0)
[2024-01-30 14:40] LABS: Alanine Aminotransferase 47 U/L (0-33); Alkaline Phosphatase 86 U/L (35-105); Aspartate Amino Transferase 53 U/L (0-32); Globulin 2.2 g/dL (1.3-4.6); Glomerular Filtration Rate 57.8 mL/min (90-130); Total Bilirubin 0.4 mg/dL (0.15-1.2); Total Protein 6.2 g/dL (6.6-8.7)
[2024-01-30 14:50] LABS: Alanine Aminotransferase 46 U/L (0-33); Albumin Level 4.1 g/dL (3.5-5.2); Alkaline Phosphatase 90 U/L (35-105); Anion Gap 15.4 (5-19); Aspartate Amino Transferase 54 U/L (0-32); Blood Urea Nitrogen 11 mg/dL (6-20); Calcium 8.3 mg/dL (8.5-10.5); Carbon Dioxide 23 mmol/L (22-29); Chloride 104 mmol/L (98-107); Chol HDL Ratio 5.97 mg/dL (0.0-4.40); Cholesterol 221 mg/dL (0-200); Globulin 2.1 g/dL (1.3-4.6); Glomerular Filtration Rate 57.8 mL/min (90-130); Glucose 274 mg/dL (65-115); HDL Cholesterol 37 mg/dL (60-100); LDL Cholesterol Calculated 145 mg/dL (50-129); LDL HDL Ratio 3.92 RATIO (0.00-3.22); Osmolality Calculated 295 mOsm/kg (285-295); Potassium 4.4 mmol/L (3.5-5.1); Sodium 138 mmol/L (136-145); Thyroid Stimulating Hormone 1.43 uIU/mL (0.27-4.20); Total Bilirubin 0.4 mg/dL (0.15-1.2); Total Protein 6.2 g/dL (6.6-8.7); Triglycerides 197 mg/dL (0-150)
== END 2024-01-30 13:34 | disposition home or self-care (01) ==
LOC: LAB 13:35
PROVIDERS: PCP Family Medicine; Visit Provider Internal Medicine Rheumatology
DX: R09.89 Other specified symptoms and signs involving the circulatory and respiratory systems (principal); Z79.899 Other long term (current) drug therapy; E04.2 Nontoxic multinodular goiter; L97.512 Non-pressure chronic ulcer of other part of right foot with fat layer exposed; M19.90 Unspecified osteoarthritis, unspecified site
CPT/HCPCS: 36415; 80053; 80061; 80076; 82565; 83036; 84443; 85025; 85651; 86140

== ENCOUNTER 2024-02-13 12:47 | Outpatient (CLI) | payer MEDICARE, MEDICAID, SELFPAY ==
[2024-02-13 13:02] LABS: Basophils # 0.1 10^3/uL (0.0-0.1); Eosinophils # 0.1 10^3/uL (0.0-0.8); Hematocrit 44.2 % (36-47); Lymphocytes # 1.4 10^3/uL (0.8-4.8); Mean Corpuscular HGB Conc 32.6 g/dL (30-55); Mean Corpuscular Hemoglobin 29.4 pg (27-33); Mean Corpuscular Volume 90.2 fl (85-98); Monocytes # 0.3 10^3/uL (0.2-0.9); Monocytes % 7.7 %; Neutrophils # 1.58 10^3/uL (1.8-7.7); Neutrophils % 45.3 %; Nucleated Red Blood Cells % 0 %; Platelet Count 162 10^3/cmm (157-399); Red Cell Distribution Width 13.4 % (12.1-15.1); White Blood Count 3.49 10^3/uL (3.29-11.43)
== END 2024-02-13 12:48 | disposition home or self-care (01) ==
PROVIDERS: PCP Family Medicine; Visit Provider Internal Medicine Rheumatology
DX: Z79.899 Other long term (current) drug therapy (principal)
CPT/HCPCS: 36415; 85025